=== PATIENT | male | born 1955 | race Caucasian/White ===

== ENCOUNTER 2021-02-15 12:29 | Emergency (ER) | payer OTHER ==
[~2021-02-15] VITALS: Ht 177.8 cm; Wt 106.6 kg
[2021-02-15 12:32] VITALS: BP 184/109
[2021-02-15] MEDS ORDERED: CEPHALEXIN500 MG PO (12:55)
== END 2021-02-15 13:00 | disposition home or self-care (01) ==
LOC: ER 12:29
DX: S61.230A Puncture wound without foreign body of right index finger without damage to nail, initial encounter (principal); W22.8XXA Striking against or struck by other objects, initial encounter; Y93.89 Activity, other specified; Y92.89 Other specified places as the place of occurrence of the external cause; Y99.8 Other external cause status